=== PATIENT | male | born 1945 | race Caucasian/White ===

== ENCOUNTER 2019-10-30 14:00 | Inpatient (IN) ==
[2019-10-30 14:30] LABS: Mean Cell Volume 94.7 fl (78-100); Mean Corpuscular Hgb Conc 28.5 g/dl (32-36); Mean Platelet Volume 9.8 fl (8-11.3); Neutrophil # 5.1 K/mm3 (1.3-6.0); Neutrophil % 79.3 % (42-75.0); Platelet Count 154 K/mm3 (150-450); Red Blood Count 2.26 M/mm3 (4.7-6.0); Red Cell Distribution Width 15.9 % (11.5-14.0); White Blood Count 6.4 K/mm3 (4.0-10.5)
[2019-10-30 14:33] LABS: Hematocrit 21.4 % (42.0-52.0); Hemoglobin 6.1 gm/dL (13.5-18.0)
[2019-10-30 14:45] LABS: Albumin * 3.1 gm/dl (3.4-5.0); Anion Gap 9.1 mmol/L (6.8-13.8); Bilirubin, Total 0.2 mg/dL (0.0-1.1); Ca. Corrected For Albumin 9.2 mg/dL (8.4-10.2); Calcium * 8.8 mg/dL (7.9-10.9); Carbon Dioxide 36.3 mmol/L (24-32.6); Potassium 4.4 mmol/L (3.4-4.6)
--- NOTE | 2019-10-30 15:03 | ERNOTE ---
GI Bleeding/Rectal Pain ER Presenting Symptoms: other - Bleeding from an unknown source Time Seen by Provider: 10/30/19 14:08 Source: patient Exam Limitations: no limitations Immunizations: IMMUNIZATION HX Immunizations Up to Date Yes History of Influenza Vaccine No Hx Pneumococcal Vaccination Yes Allergies/Adverse Reactions: Allergies morphine Allergy (Verified 03/27/15 14:40) Home Medications: HOME MEDICATIONS Acetaminophen [Tylenol] 500 mg PO PRN 10/14/19 [Last Taken Unknown] Allopurinol [Zyloprim (Allopurinol)] 100 mg PO 10/14/19 [Last Taken Unknown] Atorvastatin Calcium 40 mg PO 10/14/19 [Last Taken Unknown] Cholecalciferol (Vitamin D3) [Vitamin D3] 1,000 unit PO 10/14/19 [Last Taken Unknown] Colestipol HCl [Colestid] 1 g PO 10/14/19 [Last Taken Unknown] Donepezil HCl 10 mg PO 10/14/19 [Last Taken Unknown] Doxazosin Mesylate [Cardura] 4 mg PO BID 10/14/19 [Last Taken Unknown] Duloxetine HCl 30 mg PO 10/14/19 [Last Taken Unknown] Ferrous Sulfate 650 mg PO 10/14/19 [Last Taken Unknown] Furosemide [Lasix] 160 mg PO DAILY 10/14/19 [Last Taken Unknown] Glimepiride 4 mg PO 10/14/19 [Last Taken Unknown] HYDROcodone/ACETAMINOPHEN [Hydrocodon-Acetaminophn 10-325] 1 tab PO Q6H PRN 10/14/19 [Last Taken Unknown] Isosorbide Mononitrate [Imdur] 30 mg PO 10/14/19 [Last Taken Unknown] Leflunomide 20 mg PO 10/14/19 [Last Taken Unknown] Losartan Potassium 25 mg PO 10/14/19 [Last Taken Unknown] Magnesium Oxide [Magnesium] 400 mg PO 10/14/19 [Last Taken Unknown] Metoprolol Succinate [Toprol Xl] 100 mg PO 10/14/19 [Last Taken Unknown] Pantoprazole Sodium 40 mg PO 10/14/19 [Last Taken Unknown] Probenecid/Colchicine [Probenecid-Colchicine Tabs] 1 ea PO 10/14/19 [Last Taken Unknown] Rivaroxaban [Xarelto] 20 mg PO 10/14/19 [Last Taken Unknown] metFORMIN HCL [Metformin HCl] 1,000 mg PO BID 10/14/19 [Last Taken Unknown] predniSONE [Prednisone] 7.5 mg PO 10/14/19 [Last Taken Unknown] Narrative: Patient has a chronic blood loss that frequently requires blood transfusions. He was seen by his gi physician and told to come in for more lab work and possible transfusion. Timing: constant Quality/Severity: Present: moderate Nausea/Vomiting: Present: none Abdominal Pain: Present: none Rectal Bleeding: Present: other - Patient is unsure as his stools are never black or red or maroon in appearance Prior Treament: Reports: recently seen, treated by physician Review of Systems - Review of Systems Constitutional: Present: See HPI EYE: Present: no symptoms reported ENT: Present: no symptoms reported Respiratory: Present: no symptoms reported Cardiology: Present: no symptoms reported Gastrointestinal/Abdominal: Present: See HPI Genitourinary: Present: no symptoms reported Musculoskeletal: Present: no symptoms reported Skin: Present: no symptoms reported Neurological: Present: no symptoms reported Endocrine: Present: no symptoms reported Hematologic/Lymphatic: Present: no symptoms reported Psych: Present: no symptoms reported Medical History (Last Updated 10/14/19 @ 17:01 by Lillian Hamilton RN) History of COPD History of CVA (cerebrovascular accident) Hx of cardiac arrhythmia Hx of chronic heart failure Hx of fracture of clavicle Hx of myocardial infarction Hx of non-Hodgkin's lymphoma Hx of primary hypertension Hx of transfusion of packed red blood cells Surgical History: Surgical History (Last Updated 10/14/19 @ 17:01 by Lillian Hamilton RN) Hx of heart artery stent Hx of heart bypass surgery Hx of prior ablation treatment Hx of vertebral fracture repair Family History: Family History (Last Updated 10/14/19 @ 17:01 by Lillian Hamilton RN) Other No pertinent family history Social History: (Last Reviewed 10/14/19 @ 17:02 by Lillian Hamilton RN) Tobacco: Smoking Status: Former smoker Physical Exam - Physical Exam General Appearance: Present: wd/wn, alert, no apparent distress Head Exam: Present: normal inspection, no evidence of injury Eye Exam: PERRL: bilateral, Conjunctivae pale: bilateral Ears, Nose, Throat: Present: normal ENT inspection, H, normal pharynx Neck: Present: normal inspection, nontender Respiratory: Present: no respiratory distress, normal breath sounds, no accessory muscle use, chest nontender, lungs clear Cardiovascular/Chest: Present: regular rate, rhythm, no murmur, normal peripheral pulses Gastrointestinal/Abdominal: Present: normal bowel sounds, nontender, nondistended, soft, no organomegaly Rectal Exam: Present: deferred Back Exam: Present: normal inspection, normal range of motion Extremity Exam: Present: normal inspection, non-tender, no edema, normal range of motion Neurological Exam: Present: alert, oriented, normal mood/affect Skin Exam: Present: warm/dry, other - pale Lymphatic Exam: Present: no adenopathy Progress - Results and Orders Patient's Lab Results:: I have reviewed the patient's lab results. - Vital Signs Patient's Vital Signs:: I have reviewed the patient's vital signs. Vital Signs: Vital Signs 10/30/19 14:17 Temperature 36.1 C Pulse Rate 70 Respiratory Rate 14 Blood Pressure 79/41 L O2 Sat by Pulse Oximetry 91 L - Progress/Reassessment Chief Complaint: GI Bleed - Transfer of Care Expected Disposition: Admit Plan - Plan Plan: Patient's hemoglobin is 6.1 and he will need to be admitted for at least 2 units of packed red blood cells. I discussed case with Dr. Funk and she agrees to admit the patient. Patient's initial blood pressure registered somewhat low, however we rechecked his blood pressures and they have been running approximately 90/50 while he is been in the emergency department. Patient is asymptomatic with that blood pressure, so I suspect he probably runs low blood pressure all the time. Departure Clinical Impression: Anemia Qualifiers: Anemia type: other cause Other causes of anemia: other cause, not classified Qualified Code(s): D64.89 - Other specified anemias - Departure Disposition: Still a patient Condition: Fair Referrals: Carroll Noble DO [Primary Care Provider] -
[2019-10-30 15:25] LABS: INR 1.15 INR (0.92-1.08); Partial Thrombolplastin Time 27.5 Seconds (24-32); Prothrombin Time (Patient) 11.3 Seconds (9.1-10.7)
--- NOTE | 2019-10-30 16:34 | HP ---
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 He uses 3 L O2 at all times, and a Bipap at night. He is unable to name his medications. He states he has needed several transfusions in the past, as many as 4 U at a time during a stay at the [facility]. He has been having some blood in his stools the last couple of days, and hgb in the ED was 6.1. He had a recent colonoscopy, but isn't sure when. He reports it was negative. He denies chest pain, but has some shortness of breath, his baseline. No abdominal pain. Medical History (Last Updated 10/30/19 @ 16:54 by Dona Robbins RN) Traumatic amputation of right ring finger History of COPD History of CVA (cerebrovascular accident) Hx of cardiac arrhythmia Hx of chronic heart failure Hx of fracture of clavicle Hx of myocardial infarction Hx of non-Hodgkin's lymphoma Hx of primary hypertension Hx of transfusion of packed red blood cells Surgical History: Surgical History (Last Reviewed 10/30/19 @ 16:53 by Dona Robbins RN) Hx of heart artery stent Hx of heart bypass surgery Hx of prior ablation treatment Hx of vertebral fracture repair Family History: Family History (Last Updated 10/30/19 @ 17:01 by Dona Robbins RN) Mother No pertinent family history CHF (congestive heart failure) Diabetes Father Cancer, colon Cancer of bladder Cancer of oral cavity Social History: (Last Reviewed 10/14/19 @ 17:02 by Lillian Hamilton RN) Tobacco: Smoking Status: Former smoker Review Of Systems (GEN) - Review of Systems Generalized/Overall Review: Absent: Fever Respiratory: Present: Shortness of Breath. Absent: Cough Cardiac: Present: Edema. Absent: Chest Pain Abdominal: Present: Bright blood from rectum. Absent: Vomiting, Constipation Genitourinary: Present: No Symptoms Reported Musculoskeletal: Present: Back Pain Neurological: Present: No Symptoms Reported Immunizations: IMMUNIZATION HX Immunizations Up to Date Yes History of Influenza Vaccine No Hx Pneumococcal Vaccination Yes Allergies/Adverse Reactions: Allergies Allergy/AdvReac Type Severity Reaction Status Date / Time morphine Allergy Verified 03/27/15 14:40 Home Medications: HOME MEDICATIONS Acetaminophen [Tylenol] 500 mg PO PRN 10/14/19 [Last Taken Unknown] Allopurinol [Zyloprim (Allopurinol)] 100 mg PO 10/14/19 [Last Taken Unknown] Atorvastatin Calcium 40 mg PO 10/14/19 [Last Taken Unknown] Cholecalciferol (Vitamin D3) [Vitamin D3] 1,000 unit PO 10/14/19 [Last Taken Unknown] Colestipol HCl [Colestid] 1 g PO 10/14/19 [Last Taken Unknown] Donepezil HCl 10 mg PO 10/14/19 [Last Taken Unknown] Doxazosin Mesylate [Cardura] 4 mg PO BID 10/14/19 [Last Taken Unknown] Duloxetine HCl 30 mg PO 10/14/19 [Last Taken Unknown] Ferrous Sulfate 650 mg PO 10/14/19 [Last Taken Unknown] Furosemide [Lasix] 160 mg PO DAILY 10/14/19 [Last Taken Unknown] Glimepiride 4 mg PO 10/14/19 [Last Taken Unknown] HYDROcodone/ACETAMINOPHEN [Hydrocodon-Acetaminophn 10-325] 1 tab PO Q6H PRN 10/14/19 [Last Taken Unknown] Isosorbide Mononitrate [Imdur] 30 mg PO 10/14/19 [Last Taken Unknown] Leflunomide 20 mg PO 10/14/19 [Last Taken Unknown] Losartan Potassium 25 mg PO 10/14/19 [Last Taken Unknown] Magnesium Oxide [Magnesium] 400 mg PO 10/14/19 [Last Taken Unknown] Metoprolol Succinate [Toprol Xl] 100 mg PO 10/14/19 [Last Taken Unknown] Pantoprazole Sodium 40 mg PO 10/14/19 [Last Taken Unknown] Probenecid/Colchicine [Probenecid-Colchicine Tabs] 1 ea PO 10/14/19 [Last Taken Unknown] Rivaroxaban [Xarelto] 20 mg PO 10/14/19 [Last Taken Unknown] metFORMIN HCL [Metformin HCl] 1,000 mg PO BID 10/14/19 [Last Taken Unknown] predniSONE [Prednisone] 7.5 mg PO 10/14/19 [Last Taken Unknown] Exam - Exam Vital Signs: Vital Signs - Last Taken Temp 36.9 C 10/30/19 15:30 Pulse 67 10/30/19 15:30 Resp 22 H 10/30/19 15:30 BP 98/51 10/30/19 15:30 Pulse Ox 96 10/30/19 15:30 Constitutional: Present: Alert, Oriented x3, Cooperative, Morbidly obese Respiratory: Present: lungs clear, normal breath sounds, no respiratory distress Cardiovascular/Chest: Present: regular rate, rhythm, systolic murmur Abdomen: Present: obese Extremity: Present: lower extremity edema - 1+ bilaterally Skin Exam: Present: pallor Eye contact: Present: cooperative Diagnostic Studies: Abnormal Lab Results 10/30/19 10/30/19 10/30/19 Range/Units 14:19 14:19 14:19 RBC 2.26 L (4.7-6.0) M/mm3 Hgb 6.1 L* D (13.5-18.0) gm/dL Hct 21.4 L* D (42.0-52.0) % MCHC 28.5 L (32-36) g/dl RDW 15.9 H (11.5-14.0) % Immature Gran % (Auto) 0.50 H (0.001-0.429) % Neutrophils % 79.3 H (42-75.0) % Lymphocytes % 9.4 L (20-51) % Lymphocytes # 0.60 L (1.5-3.5) k/mm3 PT (9.1-10.7) Seconds INR (Anticoag Therapy) (0.92-1.08) INR Chloride 96 L (97-106) mmol/L Carbon Dioxide 36.3 H (24-32.6) mmol/L BUN 34 H D (6-23) mg/dL Est GFR (Non-Af Amer) 55 L (60-130) mL/min BUN/Creatinine Ratio 25.0 H (9.0-21.6) Random Glucose 282 H (70-110) mg/dL ALT 16 L (19-67) U/L Total Protein 6.0 L (6.2-8.2) gm/dL Albumin 3.1 L (3.4-5.0) gm/dl Crossmatch See Detail 10/30/19 Range/Units 14:19 RBC (4.7-6.0) M/mm3 Hgb (13.5-18.0) gm/dL Hct (42.0-52.0) % MCHC (32-36) g/dl RDW (11.5-14.0) % Immature Gran % (Auto) (0.001-0.429) % Neutrophils % (42-75.0) % Lymphocytes % (20-51) % Lymphocytes # (1.5-3.5) k/mm3 PT 11.3 H (9.1-10.7) Seconds INR (Anticoag Therapy) 1.15 H (0.92-1.08) INR Chloride (97-106) mmol/L Carbon Dioxide (24-32.6) mmol/L BUN (6-23) mg/dL Est GFR (Non-Af Amer) (60-130) mL/min BUN/Creatinine Ratio (9.0-21.6) Random Glucose (70-110) mg/dL ALT (19-67) U/L Total Protein (6.2-8.2) gm/dL Albumin (3.4-5.0) gm/dl Crossmatch Laboratory Results WBC 6.4 K/mm3 (4.0-10.5) 10/30/19 14:19 RBC 2.26 M/mm3 (4.7-6.0) L 10/30/19 14:19 Hgb 6.1 gm/dL (13.5-18.0) L* D 10/30/19 14:19 Hct 21.4 % (42.0-52.0) L* D 10/30/19 14:19 MCV 94.7 fl (78-100) 10/30/19 14:19 MCH 27.0 pg (27-31) 10/30/19 14:19 MCHC 28.5 g/dl (32-36) L 10/30/19 14:19 RDW 15.9 % (11.5-14.0) H 10/30/19 14:19 Plt Count 154 K/mm3 (150-450) 10/30/19 14:19 MPV 9.8 fl (8-11.3) 10/30/19 14:19 Immature Gran % (Auto) 0.50 % (0.001-0.429) H 10/30/19 14:19 Immature Gran # (Auto) 0.03 K/mm3 (0.000-0.0310) 10/30/19 14:19 Neutrophils % 79.3 % (42-75.0) H 10/30/19 14:19 Lymphocytes % 9.4 % (20-51) L 10/30/19 14:19 Monocytes % 7.5 % (0.0-9) 10/30/19 14:19 Eosinophils % 2.5 % (0.0-3.0) 10/30/19 14:19 Basophils % 0.8 % (0.0-1.0) 10/30/19 14:19 Nucleated RBC % 0.0 k/mm3 (0-1) 10/30/19 14:19 Neutrophils # 5.1 K/mm3 (1.3-6.0) 10/30/19 14:19 Lymphocytes # 0.60 k/mm3 (1.5-3.5) L 10/30/19 14:19 Monocytes # 0.5 k/mm3 (0.0-1.0) 10/30/19 14:19 Eosinophils # 0.2 k/mm3 (0.0-0.7) 10/30/19 14:19 Absolute Basophils 0.1 k/mm3 (0.0-0.1) 10/30/19 14:19 PT 11.3 Seconds (9.1-10.7) H 10/30/19 14:19 INR (Anticoag Therapy) 1.15 INR (0.92-1.08) H 10/30/19 14:19 PTT ([place]) 27.5 Seconds (24-32) 10/30/19 14:19 Sodium 137 mmol/L (132-142) 10/30/19 14:19 Plasma Sodium 140 mmol/L (130-142) 10/30/19 14:19 Potassium 4.4 mmol/L (3.4-4.6) 10/30/19 14:19 Chloride 96 mmol/L (97-106) L 10/30/19 14:19 Carbon Dioxide 36.3 mmol/L (24-32.6) H 10/30/19 14:19 Anion Gap 9.1 mmol/L (6.8-13.8) 10/30/19 14:19 BUN 34 mg/dL (6-23) H D 10/30/19 14:19 Creatinine 1.36 mg/dL (0.4-1.4) 10/30/19 14:19 Est GFR (Non-Af Amer) 55 mL/min (60-130) L 10/30/19 14:19 BUN/Creatinine Ratio 25.0 (9.0-21.6) H 10/30/19 14:19 Random Glucose 282 mg/dL (70-110) H 10/30/19 14:19 Calcium 8.8 mg/dL (7.9-10.9) 10/30/19 14:19 Calcium Adj for Albumin 9.2 mg/dL (8.4-10.2) 10/30/19 14:19 Total Bilirubin 0.2 mg/dL (0.0-1.1) 10/30/19 14:19 AST 10 U/L (0-48) 10/30/19 14:19 ALT 16 U/L (19-67) L 10/30/19 14:19 Alkaline Phosphatase 114 U/L (50-170) 10/30/19 14:19 Total Protein 6.0 gm/dL (6.2-8.2) L 10/30/19 14:19 Albumin 3.1 gm/dl (3.4-5.0) L 10/30/19 14:19 Blood Type O Positive 10/30/19 14:19 Antibody Screen Negative 10/30/19 14:19 Crossmatch See Detail 10/30/19 14:19 Assessment/Plan - Narrative Narrative: He has not been admitted to our facility before, and has an outside PCP. When asked about his medical diagnoses, he replies "lots," and states he takes 35 meds daily. He defers several questions to his , who is not present during my admission exam. - Assessment/Plan (1) GI bleed Assessment: I suspect he has diverticulosis, and the blood thinner is causing his frequent bleeds. Unfortunately, his PCP is outside our facility, so we have limited access to his chart. He reports fairly recent colonoscopy, but is unsure when exactly. Will hold his xarelto and give 2 U PRBC. INR not significantly elevated at 1.15. This looks to be a recurrent problem. He may not be able to tolerate anticoagulation, and will need to further discuss risks vs benefits. Problem: Acute (2) Acute blood loss anemia Assessment: Hgb is 6.1. Will give 2 U PRBC, and recheck hgb one hour after transfusion is complete. Secondary to GI bleed. Problem: Acute (3) CRF (chronic renal failure) Problem: Chronic Qualifiers: Chronic kidney disease stage: stage 3 (moderate) Qualified Code(s): N18.3 - Chronic kidney disease, stage 3 (moderate) (4) History of DVT (deep vein thrombosis) Problem: Chronic (5) Heart failure Assessment: Heart failure listed in his chart. Will need to closely monitor for fluid overload during these transfusions. Will continue 3L O2 via NC, and overnight bipap, which he does at home. Problem: Chronic (6) Diabetes mellitus Assessment: Will check glucose with meals and qhs, and administer SSI. Problem: Chronic (7) BMI 50.0-59.9, adult Problem: Acute (8) Obesity Problem: Acute Qualifiers: Serious obesity comorbidity presence: with serious comorbidity Body mass index: BMI 50.0-59.9
[2019-10-30] MEDS ORDERED: FLU VACC QS2019-20(6MOS UP)/PF 60 MCG/0.5 ML SYRINGE IM ONE (18:00)
[2019-10-30] MEDS ORDERED: [UNRECOGNIZED DRUG - OTHER] PO PRN (18:15)
[2019-10-30] MEDS ORDERED: ACETAMINOPHEN PO PRN (18:15)
[2019-10-30] MEDS ORDERED: HYDROCODONE PO PRN (18:15)
[2019-10-30] MEDS ORDERED: INDOMETHACIN 50 MG PO PRN (18:15)
[2019-10-30] MEDS ORDERED: ACETAMINOPHEN 500 MG TABLET PO PRN (18:15)
[2019-10-30] MEDS ORDERED: INDOMETHACIN 25 MG CAPSULE PO PRN (18:39)
[2019-10-30] MEDS ORDERED: metFORMIN HCL 500 MG TABLET ONE (19:27)
[2019-10-30] MEDS ORDERED: NON-FORMULARY 1 DOSE DOSE (Topiramate [Topamax] 25 MG) PO SCH (21:00)
[2019-10-30] MEDS ORDERED: DONEPEZIL HCL 10 MG TABLET PO SCH (21:00)
[2019-10-30] MEDS ORDERED: DOXAZOSIN MESYLATE 4 MG PO SCH (21:00)
[2019-10-30] MEDS: DULoxetine HCL 30 MG CAPSULE.SA PO SCH (21:11)
[2019-10-30] MEDS: DOXAZOSIN MESYLATE 2 MG TABLET PO SCH (21:11)
[2019-10-30] MEDS: TOPIRAMATE 50 MG TABLET PO SCH (21:12)
[2019-10-30] MEDS: INSULIN LISPRO 100 UNITS/ML VIAL SC SCH (21:18)
[2019-10-31 01:09] LABS: Hematocrit 23.6 % (42.0-52.0); Hemoglobin 7.1 gm/dL (13.5-18.0)
[2019-10-31] MEDS ORDERED: CEPHALEXIN MONOHYDRATE 250 MG CAPSULE ONE (02:36)
[2019-10-31] MEDS: CEPHALEXIN MONOHYDRATE 500 MG CAPSULE PO SCH ×3 (02:38→20:09)
[2019-10-31 07:03] LABS: Hematocrit 25.9 % (42.0-52.0)
[2019-10-31 07:08] LABS: Hemoglobin 7.9 gm/dL (13.5-18.0)
[2019-10-31] MEDS ORDERED: GLIMEPIRIDE 2 MG TABLET ONE (07:10)
[2019-10-31] MEDS: HYDROcodone/ACETAMINOPHEN 1 EACH TABLET PO PRN (07:15)
[2019-10-31] MEDS: GLIMEPIRIDE 4 MG TABLET PO SCH (07:15)
[2019-10-31] MEDS: INSULIN LISPRO 100 UNITS/ML VIAL SC SCH ×4 (07:48→20:14)
[2019-10-31] MEDS: TOPIRAMATE 50 MG TABLET PO SCH ×2 (08:56→20:11)
[2019-10-31] MEDS: PANTOPRAZOLE SODIUM 40 MG TABLET.EC PO SCH (08:56)
[2019-10-31] MEDS: DULoxetine HCL 30 MG CAPSULE.SA PO SCH ×2 (08:56→20:10)
[2019-10-31] MEDS: ALLOPURINOL 300 MG TABLET PO SCH (08:57)
[2019-10-31] MEDS: FUROSEMIDE 80 MG TABLET PO SCH (08:57)
[2019-10-31] MEDS: DOXAZOSIN MESYLATE 2 MG TABLET PO SCH ×2 (08:57→20:08)
--- NOTE | 2019-10-31 08:59 | PN ---
Subjective - Date and Time Seen Date: 10/31/19 Time: 08:49 Subjective Narrative: He reports his bowel movements have slowed down. He did not look to see if they are still bloody. Case management found his previous colonoscopy was done at [facility] in [place]. He feels somewhat better after receiving 3 U PRBC overnight. Objective - Review of Systems Generalized/Overall Review: Reports: Weakness Respiratory: Reports: Shortness of Breath - baseline. Denies: Cough Cardiac: Reports: Edema. Denies: Chest Pain Abdominal: Reports: Melena. Denies: Vomiting Genitourinary Symptoms: Reports: No Symptoms Reported Musculoskeletal Complaints: Reports: Joint Pain, Back Pain - Vitals Vitals: Last Vital Signs Temp 37.1 C 10/31/19 06:34 Pulse 100 10/31/19 08:10 Resp 20 10/31/19 06:34 BP 114/69 10/31/19 06:34 Pulse Ox 100 10/31/19 06:34 - Abnormal Lab Findings Abnormal Lab Findings: Abnormal Lab Results 10/30/19 10/30/19 10/30/19 Range/Units 14:19 14:19 14:19 RBC 2.26 L (4.7-6.0) M/mm3 Hgb 6.1 L* D (13.5-18.0) gm/dL Hct 21.4 L* D (42.0-52.0) % MCHC 28.5 L (32-36) g/dl RDW 15.9 H (11.5-14.0) % Immature Gran % (Auto) 0.50 H (0.001-0.429) % Neutrophils % 79.3 H (42-75.0) % Lymphocytes % 9.4 L (20-51) % Lymphocytes # 0.60 L (1.5-3.5) k/mm3 PT (9.1-10.7) Seconds INR (Anticoag Therapy) (0.92-1.08) INR Chloride 96 L (97-106) mmol/L Carbon Dioxide 36.3 H (24-32.6) mmol/L BUN 34 H D (6-23) mg/dL Est GFR (Non-Af Amer) 55 L (60-130) mL/min BUN/Creatinine Ratio 25.0 H (9.0-21.6) Random Glucose 282 H (70-110) mg/dL ALT 16 L (19-67) U/L Total Protein 6.0 L (6.2-8.2) gm/dL Albumin 3.1 L (3.4-5.0) gm/dl Stool Occult Blood Crossmatch See Detail 10/30/19 10/30/19 10/31/19 Range/Units 14:19 23:37 01:02 RBC (4.7-6.0) M/mm3 Hgb 7.1 L* (13.5-18.0) gm/dL Hct 23.6 L* (42.0-52.0) % MCHC (32-36) g/dl RDW (11.5-14.0) % Immature Gran % (Auto) (0.001-0.429) % Neutrophils % (42-75.0) % Lymphocytes % (20-51) % Lymphocytes # (1.5-3.5) k/mm3 PT 11.3 H (9.1-10.7) Seconds INR (Anticoag Therapy) 1.15 H (0.92-1.08) INR Chloride (97-106) mmol/L Carbon Dioxide (24-32.6) mmol/L BUN (6-23) mg/dL Est GFR (Non-Af Amer) (60-130) mL/min BUN/Creatinine Ratio (9.0-21.6) Random Glucose (70-110) mg/dL ALT (19-67) U/L Total Protein (6.2-8.2) gm/dL Albumin (3.4-5.0) gm/dl Stool Occult Blood Positive H Crossmatch 10/31/19 Range/Units 06:50 RBC (4.7-6.0) M/mm3 Hgb 7.9 L* (13.5-18.0) gm/dL Hct 25.9 L (42.0-52.0) % MCHC (32-36) g/dl RDW (11.5-14.0) % Immature Gran % (Auto) (0.001-0.429) % Neutrophils % (42-75.0) % Lymphocytes % (20-51) % Lymphocytes # (1.5-3.5) k/mm3 PT (9.1-10.7) Seconds INR (Anticoag Therapy) (0.92-1.08) INR Chloride (97-106) mmol/L Carbon Dioxide (24-32.6) mmol/L BUN (6-23) mg/dL Est GFR (Non-Af Amer) (60-130) mL/min BUN/Creatinine Ratio (9.0-21.6) Random Glucose (70-110) mg/dL ALT (19-67) U/L Total Protein (6.2-8.2) gm/dL Albumin (3.4-5.0) gm/dl Stool Occult Blood Crossmatch - Exam Constitutional: Present: Alert, Cooperative, Morbidly obese Respiratory: Present: lungs clear, normal breath sounds, other - wearing 3 L O2 via NC Cardiovascular/Chest: Present: regular rate, rhythm, edema - 2+ bilateral lower extremities Abdomen: Present: obese, tender - right sided Neurologic: Present: normal mood/affect Assessment/Plan - Problems/Diagnosis (1) GI bleed Problem: Acute Narrative: He feels like his stools have slowed down. He had 10-12 BMs yesterday, but only had 2-3 overnight. Suspect he may have diverticulosis, and has been anticoagulated with Xarelto. He agrees with holding Xarelto. Discussed risks vs benefits of continued anticoagulation. He has had several GI bleeds. He agrees with stopping it, knowing that increases his risk of developing another blood clot. He has had DVTs in the past. Hgb was 7.9 this morning after receiving 3 U PRBC overnight. Will recheck hgb/hct early this afternoon. If it does not decrease, and if his bloody bowel movements stop, could DC this evening. If not, will keep him another night. He had a colonoscopy fairly recently at [facility] in , and they are faxing the report to us. (2) Acute blood loss anemia Problem: Acute (3) CRF (chronic renal failure) Problem: Chronic Qualifiers: Chronic kidney disease stage: stage 3 (moderate) Qualified Code(s): N18.3 - Chronic kidney disease, stage 3 (moderate) (4) History of DVT (deep vein thrombosis) Problem: Chronic Narrative: Holding Xarelto for acute GI bleed. (5) Heart failure Problem: Chronic (6) Diabetes mellitus Problem: Chronic (7) BMI 50.0-59.9, adult Problem: Acute (8) Obesity Problem: Acute Qualifiers: Serious obesity comorbidity presence: with serious comorbidity Body mass index: BMI 50.0-59.9
[2019-10-31] MEDS ORDERED: ATORVASTATIN CALCIUM 40 MG PO SCH (09:00)
[2019-10-31] MEDS ORDERED: ROSUVASTATIN CALCIUM 10 MG TABLET PO SCH (09:00)
[2019-10-31] MEDS ORDERED: ALLOPURINOL 100 MG TABLET PO SCH (09:00)
[2019-10-31 12:55] LABS: Hematocrit 25.8 % (42.0-52.0)
[2019-10-31 12:58] LABS: Hemoglobin 7.8 gm/dL (13.5-18.0)
[2019-10-31] MEDS ORDERED: ROSUVASTATIN CALCIUM 20 MG TABLET PO SCH (21:00)
[2019-10-31] MEDS ORDERED: DONEPEZIL HCL 5 MG TABLET PO SCH (21:00)
[2019-11-01 06:33] LABS: Hematocrit 26.3 % (42.0-52.0); Mean Cell Volume 91.6 fl (78-100); Mean Corpuscular Hemoglobin 27.9 pg (27-31); Mean Corpuscular Hgb Conc 30.4 g/dl (32-36); Mean Platelet Volume 9.7 fl (8-11.3); Neutrophil # 3.4 K/mm3 (1.3-6.0); Platelet Count 140 K/mm3 (150-450); Red Blood Count 2.87 M/mm3 (4.7-6.0); Red Cell Distribution Width 16.2 % (11.5-14.0)
--- NOTE | 2019-11-01 08:45 | DS ---
(1) GI bleed Problem: Resolved (2) CRF (chronic renal failure) Problem: Chronic Qualifiers: Chronic kidney disease stage: stage 3 (moderate) Qualified Code(s): N18.3 - Chronic kidney disease, stage 3 (moderate) (3) History of DVT (deep vein thrombosis) Problem: Chronic (4) Heart failure Problem: Chronic (5) Diabetes mellitus Problem: Chronic (6) BMI 50.0-59.9, adult Problem: Acute (7) Obesity Problem: Acute Qualifiers: Serious obesity comorbidity presence: with serious comorbidity Body mass index: BMI 50.0-59.9 (8) Stage II decubitus ulcer Problem: Acute (9) History of B-cell lymphoma Problem: Acute (10) Anticoagulant adverse reaction Diagnosis(s): GI bleed, recurrent problem. Problem: Chronic (11) Hemorrhagic disorder due to extrinsic circulating anticoagulants Problem: Resolved Date of Discharge:: 11/01/19 Hospital Course: Patient with PMHx of previous DVTs on Xarelto, heart failure with diastolic dysfunction, diabetes, recurrent GI bleed, morbid obesity with a BMI of 51, history of B cell lymphoma, COPD on O2, 3 L at all times, and a Bipap at night, stage II ulcer on his perineum. He is unable to name his medications. He states he has needed several transfusions in the past, as many as 4 U at a time during a stay at the [facility] [place] [facility]. He had been having some blood in his stools the last couple of days prior to admission, and hgb in the ED was 6.1. He was admitted for transfusion, and serial H&H. He was given a total of 3 U PRBC, and hgb stayed around 7.8-8.0. DC Hgb was 8.0, and he reports no continued blood in his stool. It was felt that the GI bleed was due to Xarelto use. Risks vs. benefits discussed with him and his , and they opted to hold anticoagulation. He felt comfortable leaving on the day of DC. He reports a skin ulcer in his perineum that his was managing, and on the day of DC, she reported it looked better than it had in the past. He was interested in home health. Mr. Marr is confined to the home due to his COPD, lymphoma, morbid obesity. The need for senior care is medication management. The need for home health care skilled services is directly related to the time spent [id number] with Mr. Marr. Procedures Performed: none Results and Findings: Lab Pending Results 10/30/19 14:19: WBC 6.4, RBC 2.26 L, Hgb 6.1 L* D, Hct 21.4 L* D, MCV 94.7, MCH 27.0, MCHC 28.5 L, RDW 15.9 H, Plt Count 154, MPV 9.8, Immature Gran % (Auto) 0.50 H, Immature Gran # (Auto) 0.03, Neutrophils % 79.3 H, Lymphocytes % 9.4 L, Monocytes % 7.5, Eosinophils % 2.5, Basophils % 0.8, Nucleated RBC % 0.0, Neutrophils # 5.1, Lymphocytes # 0.60 L, Monocytes # 0.5, Eosinophils # 0.2, Absolute Basophils 0.1 10/30/19 14:19: Sodium 137, Plasma Sodium 140, Potassium 4.4, Chloride 96 L, Carbon Dioxide 36.3 H, Anion Gap 9.1, BUN 34 H D, Creatinine 1.36, Est GFR (Non- Af Amer) 55 L, BUN/Creatinine Ratio 25.0 H, Random Glucose 282 H, Calcium 8.8, Calcium Adj for Albumin 9.2, Total Bilirubin 0.2, AST 10, ALT 16 L, Alkaline Phosphatase 114, Total Protein 6.0 L, Albumin 3.1 L 10/30/19 14:19: Blood Type O Positive, Antibody Screen Negative, Crossmatch See Detail 10/30/19 14:19: PT 11.3 H, INR (Anticoag Therapy) 1.15 H, PTT (Sheri) 27.5 10/30/19 17:05: Stool Occult Blood Negative 10/30/19 23:37: Stool Occult Blood Positive H 10/31/19 01:02: Hgb 7.1 L*, Hct 23.6 L* 10/31/19 06:50: Hgb 7.9 L*, Hct 25.9 L 10/31/19 12:50: Hgb 7.8 L*, Hct 25.8 L 11/01/19 06:26: WBC 5.0 D, RBC 2.87 L, Hgb 8.0 L, Hct 26.3 L, MCV 91.6, MCH 27.9, MCHC 30.4 L, RDW 16.2 H, Plt Count 140 L, MPV 9.7, Immature Gran % (Auto) 0.80 H, Immature Gran # (Auto) 0.04 H, Neutrophils % 67.0, Lymphocytes % 15.2 L, Monocytes % 10.4 H, Eosinophils % 5.6 H, Basophils % 1.0, Nucleated RBC % 0.0, Neutrophils # 3.4, Lymphocytes # 0.76 L, Monocytes # 0.5, Eosinophils # 0.3, Absolute Basophils 0.1 Discharge Location: Home Disposition: [facility] Agency: [facility] Condition: Fair Discharge Activity: Activity as tolerated Discharge Diet: Consistent carbs Referrals: Carroll Noble DO [Primary Care Provider] - One Week Additional Patient Instructions (free text): [facility]. Please schedule follow up with his current PCP. Complete Home Medications List: Complete Home Medication List: Allopurinol [Zyloprim] 300 mg PO DAILY 10/14/19 Atorvastatin Calcium 40 mg PO DAILY 10/14/19 Donepezil HCl 5 mg PO HS 10/14/19 Doxazosin Mesylate [Cardura] 4 mg PO BID 10/14/19 Duloxetine HCl 30 mg PO BID 10/14/19 Ferrous Sulfate 650 mg PO DAILY 10/14/19 Furosemide [Lasix] 80 mg PO DAILY 10/14/19 Glimepiride 4 mg PO DAILY 10/14/19 HYDROcodone/ACETAMINOPHEN [Hydrocodone-Acetamin 10-325 mg] 1 tab PO Q6H PRN 10/14/19 Isosorbide Mononitrate [Imdur] 30 mg PO DAILY 10/14/19 Leflunomide 20 mg PO DAILY 10/14/19 Losartan Potassium 25 mg PO BID 10/14/19 Magnesium Oxide [Magnesium] 400 mg PO DAILY 10/14/19 Metoprolol Succinate [Toprol Xl] 100 mg PO DAILY 10/14/19 Pantoprazole Sodium 40 mg PO DAILY 10/14/19 metFORMIN HCL [Metformin HCl] 1,000 mg PO BID 10/14/19 predniSONE [Prednisone] 2.5 mg PO DAILY 10/14/19 [place] 10 mcg SC BID 10/30/19 Indomethacin 50 mg PO BID PRN 10/30/19 Lactobacillus Combo No.10 [Probiotic] 1 ea PO DAILY 10/30/19 Topiramate [Topamax] 25 mg PO BID 10/30/19 Insulin Lispro Protamin/Lispro [Humalog Mix 75-25 Kwikpen] See Protocol SQ AC 10/31/19
[2019-11-01] MEDS: INSULIN LISPRO 100 UNITS/ML VIAL SC SCH ×2 (09:22→11:32)
[2019-11-01] MEDS: ALLOPURINOL 300 MG TABLET PO SCH (09:23)
[2019-11-01] MEDS: FUROSEMIDE 80 MG TABLET PO SCH (09:23)
[2019-11-01] MEDS: DOXAZOSIN MESYLATE 2 MG TABLET PO SCH (09:23)
[2019-11-01] MEDS: TOPIRAMATE 50 MG TABLET PO SCH (09:23)
[2019-11-01] MEDS: DULoxetine HCL 30 MG CAPSULE.SA PO SCH (09:24)
[2019-11-01] MEDS: GLIMEPIRIDE 4 MG TABLET PO SCH (09:24)
[2019-11-01] MEDS: CEPHALEXIN MONOHYDRATE 500 MG CAPSULE PO SCH (09:24)
[2019-11-01] MEDS: PANTOPRAZOLE SODIUM 40 MG TABLET.EC PO SCH (09:24)
[2019-11-01] MEDS: HYDROcodone/ACETAMINOPHEN 1 EACH TABLET PO PRN (13:06)
[2019-11-01 16:01] VITALS: BP 112/86
== END 2019-11-01 14:00 | disposition home health service (06) | DRG 813 ==
LOC: ER 14:00 → MS 14:00
PROVIDERS: ADMIT Family Medicine; ATTEND Family Medicine
CPT/HCPCS: 36415; 78278; 80053; 82272; 85014; 85018; 85025; 85610; 85730; 86850; 90686; 94660; 99284; 99285; A9560; G0008; G0378; P9016